=== PATIENT | female | born 1970 | race African-American/Black ===

== ENCOUNTER 2024-10-18 12:33 | Inpatient (IN) | payer OTHER ==
[2024-10-18 13:07] VITALS: BMI 44.2
[2024-10-18] MEDS ORDERED: BISMUTH SUBSALICYLATE 262 MG/15 ML BTL PO PRN (13:49)
[2024-10-18] MEDS ORDERED: guaiFENesin 600 MG TABLET.ER (FP) PO PRN (13:49)
[2024-10-18] MEDS ORDERED: MAG HYDROX/AL HYDROX/SIMETH 30 ML UNIT-DOSE CUP PO PRN (13:49)
[2024-10-18] MEDS ORDERED: LOPERAMIDE HCL 2 MG CAPSULE PO PRN (13:49)
[2024-10-18] MEDS ORDERED: BENZONATATE 200 MG CAPSULE PO PRN (13:49)
[2024-10-18] MEDS ORDERED: hydrOXYzine PAMOATE 25 MG CAPSULE (FP) PO PRN (13:49)
[2024-10-18] MEDS ORDERED: DICYCLOMINE HCL 10 MG CAPSULE PO PRN (13:49)
[2024-10-18] MEDS ORDERED: METHOCARBAMOL 500 MG TABLET PO PRN (13:49)
[2024-10-18] MEDS ORDERED: BENZOCAINE/MENTHOL (CHLORASEPTIC ) LOZENGE MM PRN (13:49)
[2024-10-18] MEDS ORDERED: MAGNESIUM HYDROX 2400MG/30ML ORAL SUSPENSION 30 ML CUP PO PRN (13:49)
[2024-10-18] MEDS ORDERED: NALOXONE (NARCAN) HCL 4 MG/0.1 ML SPRAY NS PRN (13:49)
[2024-10-18] MEDS ORDERED: POLYETHYLENE GLYCOL (HEALTHYLAX) 3350 17 GM PACKET PO PRN (13:49)
[2024-10-18] MEDS ORDERED: IBUPROFEN 600 MG TABLET (FP) PO PRN (13:49)
[2024-10-18] MEDS ORDERED: ONDANSETRON *ODT* 4 MG TABLET SL PRN (13:49)
[2024-10-18] MEDS ORDERED: IBUPROFEN 400 MG TABLET (FP) PO PRN (13:49)
[2024-10-18] MEDS: NICOTINE 14 MG/24 HOURS TOPICAL PATCH TD SCH (15:48)
[2024-10-18] MEDS ORDERED: PRENATAL VITAMINS W/ FOLIC ACID TABLET (FP) PO ONE (15:49)
[2024-10-18] MEDS: PRENATAL VITAMINS W/ FOLIC ACID TABLET (FP) PO SCH (15:51)
[2024-10-18] MEDS: chlordiazePOXIDE HCL 25 MG CAPSULE PO SCH (17:04)
[2024-10-18] MEDS: THIAMINE 100 MG TABLET PO SCH (23:10)
[2024-10-18] MEDS: MELATONIN 5 MG TABLETS PO SCH (23:10)
[2024-10-19] MEDS: metFORMIN HCL 500 MG TABLET (FP) PO SCH (07:02)
[2024-10-19] MEDS: ASPIRIN 81 MG CHEWABLE TABLETS PO SCH (10:44)
[2024-10-19] MEDS: LISINOPRIL 20 MG TABLET PO SCH (10:45)
[2024-10-19] MEDS: HYDROCHLOROTHIAZIDE 25 MG TABLET (FP) PO SCH (10:45)
[2024-10-19] MEDS: ACETAMINOPHEN 325 MG TABLET (FP) PO PRN (10:46)
[2024-10-19 11:25] LABS: HEMATOCRIT 38.1 % (34.1-44.9); HEMOGLOBIN 12.6 g/dL (11.2-15.7); MCHC 33.1 g/dl (32.2-35.5); MEAN CELL VOLUME 90.9 fl (79.4-94.8); MEAN PLT VOLUME 10.9 fl (9.4-12.3); PLATELET COUNT 268 x10^3/uL (182-369); RDW 14.6 % (12.3-16.6)
[2024-10-19 11:29] LABS: CHLORIDE 109 mmol/L (98-107); POTASSIUM 4.1 mmol/L (3.5-5.1); SODIUM 144 mmol/L (136-145)
[2024-10-19 11:44] LABS: SGPT/ALT 29 U/L (13-61)
[2024-10-19 11:45] LABS: BLOOD UREA NITROGEN 11.2 mg/dL (7-18); CREATININE 0.6 mg/dL (0.55-1.3)
[2024-10-19 11:46] LABS: ALBUMIN 2.9 g/dl (3.4-5.0); ANION GAP 9 mmol/L (4-13); BILIRUBIN,TOTAL 0.2 mg/dL (0.2-1); CO2 26 mmol/L (21-32); GLUCOSE,RANDOM 134 mg/dL (74-106); TOT PROT 5.8 g/dl (6.4-8.2)
[2024-10-19 11:47] LABS: ALK PHOS 111 U/L (45-117)
[2024-10-19 11:50] LABS: CALCIUM 9.6 mg/dL (8.5-10.1)
[2024-10-19 11:54] LABS: SGOT/AST 17 U/L (15-37)
[2024-10-19 19:06] LABS: HCV DIAGNOSTIC IN-HOUSE W/RFLX NON-REACTIVE (NONREACTIVE); HIV INTERPRETATION NEGATIVE (NEGATIVE)
[2024-10-20] MEDS: chlordiazePOXIDE HCL 25 MG CAPSULE PO SCH (05:50)
[2024-10-20] MEDS: chlordiazePOXIDE HCL 25 MG CAPSULE PO PRN (18:52)
[2024-10-20 19:04] VITALS: BP 157/96; PULSE 96; RESP 16; TEMP 97.7
[2024-10-21] MEDS ORDERED: chlordiazePOXIDE HCL 10 MG CAPSULE PO PRN
[2024-10-21] MEDS ORDERED: chlordiazePOXIDE HCL 10 MG CAPSULE PO SCH (05:00)
[2024-10-22] MEDS ORDERED: chlordiazePOXIDE HCL 10 MG CAPSULE PO SCH (05:00)
[2024-10-23] MEDS ORDERED: chlordiazePOXIDE HCL 10 MG CAPSULE PO ONE (05:00)
== END 2024-10-20 19:40 | disposition left against medical advice (07) | DRG 770 ==
LOC: YASAS 12:33 → Y6N 16:05
PROVIDERS: ADMIT Allergy & Immunology; ATTEND Allergy & Immunology
PROC: HZ2ZZZZ Detoxification Services for Substance Abuse Treatment (ICD-10-PCS; principal; 2024-10-18)
DX: F10.230 Alcohol dependence with withdrawal, uncomplicated (principal); F14.20 Cocaine dependence, uncomplicated; F12.20 Cannabis dependence, uncomplicated; F17.210 Nicotine dependence, cigarettes, uncomplicated; I10 Essential (primary) hypertension; E11.9 Type 2 diabetes mellitus without complications; Z79.84 Long term (current) use of oral hypoglycemic drugs
CPT/HCPCS: 36415; 80053; 80305; 80307; 81025; 85027; 86780; 86803; 87389; 93005; 93010